=== PATIENT | female | born 1995 | race Caucasian/White ===

== ENCOUNTER 2018-08-24 17:48 | Emergency (ER) | payer MEDICAID ==
[~2018-08-24] VITALS: Ht 172.7 cm; Wt 95.3 kg
[2018-08-24 17:55] VITALS: BP 105/64
--- NOTE | 2018-08-24 17:57 | NUR ---
TO LOBBY A/W BED, AMBULATORY
--- NOTE | 2018-08-24 19:42 | NUR ---
Pt taken to bed 9.
--- NOTE | 2018-08-24 19:55 | NUR ---
22 Y/O F PRESENTED TO ED WITH C/O ABDOMINAL PAIN X 1 DAY. 10 PAIN, INTERMINTENT. PAIN IS LOCALIZED TO UMBILICUS AND LOWER ABDOMEN. PT STATED "I'VE BEEN THOWING UP SO MUCH THAT MY STOMACH STARTED TO HURT." UNABLE TO KEEP FOOD DOWN. DENIES HEMATURIA AND LOWER BACK PAIN. +N/V/D. ERMD NOTIFIED. WILL CONTINUE TO MONITOR.
[2018-08-24] MEDS ORDERED: DICYCLOMINE HCL LIQUID 20 MG, ALUMINUM HYD/MAG/SIMETHICONE 30 ML, LIDOCAINE VISCOUS 2% ... PO ONE ×3 (20:35)
[2018-08-24] MEDS ORDERED: KETOROLAC 30 MG/ML VIAL IM ONE (20:35)
--- NOTE | 2018-08-24 22:30 | NUR ---
ALL RESULTS BACK AND NOTED BY ERMD AND FOR D/C
[2018-08-24 22:36] VITALS: BP 112/68
--- NOTE | 2018-08-24 22:36 | NUR ---
Patient discharged with v/s stable. Written and verbal after care instructions given and explained. Patient alert, oriented and verbalized understanding of instructions. Ambulatory with steady gait. All questions addressed prior to discharge. ID band removed. Patient advised to follow up with PMD. Rx of NAPROSYN 500MG, MYLANTA 200MG, ZOFRAN ODT 4 MG given. Patient educated on indication of medication including possible reaction and side effects. Opportunity to ask questions provided and answered.
== END 2018-08-24 22:36 | disposition home or self-care (01) ==
LOC: MED 17:48
DX: B34.9 Viral infection, unspecified (principal); R10.33 Periumbilical pain
CPT/HCPCS: 81002; 81025; 87804; 96372; 99283; J1885